=== PATIENT | male | born 1945 | race Caucasian/White ===

== ENCOUNTER 2016-07-21 08:07 | Inpatient (IN) | payer OTHER ==
[2016-06-08 09:41] VITALS: BMI 29.0
--- NOTE | 2016-06-08 10:17 | PAT Medication Instructions ---
Service Date Jun 08, 2016. Current Home Medication List Ascorbic Acid (Vitamin C), 500 MG PO QAM Aspirin (Aspirin Ec), 81 MG PO HS Famotidine (Acid Controller), 1 TAB PO QAM Fish Oil ([place]-3), 1 CAP PO QAM Gabapentin (Neurontin), 300 MG PO BID Glucosamine Sulfate (Glucosamine), 1,000 MG PO BID Ramipril (Ramipril), 1 CAP PO QAM Simvastatin (Zocor), 40 MG PO QPM [Coreg], 1.5625 MG PO BID Medication Instructions For Your Scheduled Surgery - Hold the following medications 2 weeks prior to surgery: Glucosamine Sulfate (Glucosamine), 1,000 MG PO BID Fish Oil ([place]-3), 1 CAP PO QAM - Hold the following medications the morning of surgery: Ramipril (Ramipril), 1 CAP PO QAM Famotidine (Acid Controller), 1 TAB PO QAM Ascorbic Acid (Vitamin C), 500 MG PO QAM - Take the following medications the morning of surgery with a sip of water: [Coreg], 1.5625 MG PO BID Gabapentin (Neurontin), 300 MG PO BID - Take the following medications as scheduled the night before surgery: [Coreg], 1.5625 MG PO BID Simvastatin (Zocor), 40 MG PO QPM Gabapentin (Neurontin), 300 MG PO BID Aspirin (Aspirin Ec), 81 MG PO HS If you have any questions please call us at [phone] (Jennifer Hoff PA-C) or [phone] or [phone]
[2016-06-08 10:53] LABS: BASO % 0.3 %; BASO ABS # 0.02 K/uL (0-0.2); COMPLETE YES; HEMATOCRIT 42.4 % (42-52); IG% 0.3 %; LYMPH % 22.9 %; MEAN CELL VOLUME 95.1 fL (80-100); MEAN CORPUSCULAR HEMOGLOBIN 32.7 pg (25-34); MEAN CORPUSCULAR HGB CONC 34.4 g/dl (32-36); MEAN PLATELET VOLUME 10.4 fL (7.4-10.4); MONO % 11.9 %; NEUT % 59.6 %; PLATELET COUNT 296 K/uL (130-400); RED BLOOD COUNT 4.46 M/uL (4.7-6.1); WHITE BLOOD COUNT 6.56 K/uL (4.8-10.8)
[2016-06-08 10:59] LABS: URINE APPEARANCE CLEAR (CLEAR); URINE BILIRUBIN NEG (NEG); URINE COLOR YELLOW; URINE NITRITE NEG (NEG); URINE SPECIFIC GRAVITY 1.007 (1.000-1.030); UROBILINOGEN NEG (NEG)
--- NOTE | 2016-06-08 10:59 | DIAGNOSTIC IMAGING REPORT ---
CHEST PREADMISSION(PA/LAT) CLINICAL HISTORY: PAT preoperative evaluation COMPARISON STUDY: No previous studies for comparison. FINDINGS: The bones soft tissues and hemidiaphragms are normal. The cardiomediastinal silhouette is normal. The lungs are clear. The pulmonary vasculature is normal. IMPRESSION: Negative chest. Electronically signed by: Agustin Ocasio M.D. 06/08/2016 10:58 AM Dictated Date/Time: 06/08/2016 10:57 AM
[2016-06-08 11:00] LABS: MANUAL MICROSCOPIC REQUIRED? NO; REVIEW REQ? NO
[2016-06-08 11:22] LABS: BUN/CREATININE RATIO 15.4 (10-20); CALCIUM 9.5 mg/dl (8.5-10.1); CREATININE 0.9 mg/dl (0.60-1.40); POTASSIUM 4.3 mmol/L (3.5-5.1)
--- NOTE | 2016-07-20 08:59 | HISTORY & PHYSICAL EXAMINATION ---
DATE OF ADMISSION: 07/21/2016 HISTORY OF PRESENT ILLNESS: Mr. Glass presents to our office with back and bilateral leg pain. This is exacerbated with activity. He has had an EMG on 05/27/[address] Hankins, which shows bilateral acute lumbosacral radiculopathy, is likely S1. 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 He has also had 2 prior lumbar injections with modest relief. Denies bowel or bladder dysfunction. PAST MEDICAL HISTORY: Significant for Lyme disease, hypertension, coronary artery disease, prostate cancer, anxiety/depression and GERD. PAST SURGICAL HISTORY: Significant for prostate, cardiac stents and vasectomy. ALLERGIES: None listed. MEDICATIONS: Include 81 mg of aspirin a day, unknown med twice a day, cimetidine 10 mg a day, fish oil 1000 mg a day, gabapentin 300 mg t.i.d., glucosamine 750 mg a day, ramipril 5 mg a day, simvastatin 40 mg a day, vitamin C 500 mg daily. SOCIAL HISTORY: He quit smoking in 1973. Alcohol use is 36 drinks of beer per week. Drug use none listed. He is . REVIEW OF SYSTEMS: Significant for back and bilateral leg pain. FAMILY HISTORY: Noncontributory. PHYSICAL EXAMINATION: HEENT: Speech appropriate. CARDIOPULMONARY: No gross abnormalities. ABDOMEN: Soft, nontender. GENITOURINARY: Deferred. NEUROLOGIC: Cranial nerves II-XII grossly intact. MUSCULOSKELETAL: The patient has 4/5 right dorsiflexion and extension and 5/5 on the left. He ambulates with a steady narrow-based gait. ASSESSMENT: Lumbar spinal stenosis. PLAN: At this point in time, he has trialed and failed conservative therapy. We have reviewed surgical intervention. Surgery would require lumbar decompression and instrumented fusion L4-L5 and L5-S1. Risks, benefits, pros, cons, and alternatives were outlined in detail. The patient would like to proceed with above-mentioned surgical planning. [facility] CENTER[facility]na
[2016-07-21] VITALS (7 sets, daily range): BP systolic 129–165; BP diastolic 80–87; PULSE 79–117; TEMP 36.4–36.9; O2SAT 95–98; Ht 170.2 cm; Wt 85.6 kg
[~2016-07-21] VITALS: Ht 170.2 cm; Wt 85.6 kg
--- NOTE | 2016-07-21 07:13 | History & Physical Bridge Note ---
H&P Re-Evaluation Bridge Note: I have examined the patient, reviewed the History & Physical and in the interval since the performance of the History & Physical I have noted the following changes of clinical significance: No changes noted
[~2016-07-21 08:07] MED LIST: ASCO1CAP3 PO; ASPI81TA28 PO; CEFAZOLIN 2000 MG/60 ML D5W IV SCH; COREG PO; FAMO10TA PO; GABA-113 PO; GLUC10007 PO; LACTATED RINGER'S 1000ML 1,000 ML IV SCH; OMEG10007 PO; RAMI5CAP PO; SIMV40TA2 PO
[2016-07-21] MEDS ORDERED: FENTANYL CITRATE INJ 50 MCG/1 ML 2 ML VIAL ONE ×3 (08:37→10:48)
[2016-07-21] MEDS ORDERED: HYDROmorphone INJ 2 MG/ML SYR/VIAL IV PRN (09:00)
[2016-07-21] MEDS ORDERED: ONDANSETRON INJ 2 MG/ML 2 ML VIAL IV PRN ×2 (09:00→11:30)
[2016-07-21] MEDS ORDERED: LABETALOL HCL IV 5 MG/ML 20ML IV PRN (09:00)
[2016-07-21] MEDS ORDERED: ATROPINE SULFATE 0.1 MG/ML 5ML SYR IV PRN (09:00)
[2016-07-21] MEDS ORDERED: SODIUM CHLORIDE 0.9% PF 50 ML VIAL ONE (09:12)
[2016-07-21] MEDS ORDERED: BACITRACIN 50000 UNIT VIAL ONE (09:12)
[2016-07-21] MEDS ORDERED: BUPIVACAINE/EPINEPHRINE 0.5% MPF 1:200,000 30 ML VIAL ONE (09:12)
[2016-07-21] MEDS ORDERED: HYDROmorphone INJ 2 MG/ML SYR/VIAL ONE ×2 (09:52→11:38)
[2016-07-21] MEDS: FLOSEAL HEMOSTATIC MATRIX 10ML TOP ONE ×3 (10:45→11:21)
[2016-07-21] MEDS ORDERED: SODIUM CHLORIDE 0.9% 1000ML 1,000 ML IV SCH (11:23)
--- NOTE | 2016-07-21 11:23 | [facility] Post Operative Brief Note ---
Immediate Operative Summary Operative Date Jul 21, 2016. Pre-Operative Diagnosis Spinal Stenosis Post-Operative Diagnosis same as pre-operative Procedure(s) Performed L4-L5, L5-S1 Lumbar Laminectomy, Decompression; L4-L5, L5-S1 Posterolateral Fusion, Interbody Cage L5-S1 with use of Lynn and Yuan Surgeon Dr. Juan J Case Racetrack Steward Surgeon(s) Eloisa Bazan PA-C Estimated Blood Loss 200ML Findings stenosis/spondy Specimens none
[2016-07-21] MEDS ORDERED: FAMOTIDINE 20 MG TAB PO PRN (11:30)
[2016-07-21] MEDS ORDERED: LORAZEPAM INJ 0.5 MG in SYRINGE 0.75 ML IV PRN (11:30)
[2016-07-21] MEDS ORDERED: MAGNESIUM HYDROXIDE SUSP 30 ML UDC PO PRN (11:30)
[2016-07-21] MEDS ORDERED: ACETAMINOPHEN 500 MG TAB PO PRN (11:30)
[2016-07-21] MEDS ORDERED: ACETAMINOPHEN IV 100 ML IV PRN (11:30)
[2016-07-21] MEDS ORDERED: BISACODYL 10 MG SUPP PR PRN (11:30)
[2016-07-21] MEDS ORDERED: ALUMINUM/MAGNESIUM SUSP 30 ML UDC PO PRN (11:30)
[2016-07-21] MEDS ORDERED: NALOXONE HCL 0.4 MG/1 ML VIAL/CARP IV PRN ×2 (11:30)
[2016-07-21] MEDS ORDERED: METOCLOPRAMIDE HCL INJ 5 MG/ML 2 ML VIAL IV PRN (11:30)
[2016-07-21] MEDS ORDERED: LORAZEPAM 0.5 MG TAB PO PRN (11:30)
[2016-07-21] MEDS ORDERED: DO NOT ADMINISTER FLU VACCINE PRN ×3 (11:30)
[2016-07-21] MEDS ORDERED: hydrOXYzine HCL 25 MG TAB PO PRN (11:30)
[2016-07-21] MEDS ORDERED: PROMETHAZINE HCL INJ 12.5 MG in SODIUM CHLORIDE 0.9% 50ML 50 ML IV PRN (11:30)
[2016-07-21] MEDS ORDERED: DO NOT ADMINISTER PNEUMOCOCCAL VACCINE PRN ×2 (11:30)
[2016-07-21] MEDS ORDERED: SOD PHOSPHATE/SOD BIPHOSPHATE ENEMA 132 ML BTL PR PRN (11:30)
[2016-07-21] MEDS ORDERED: LIDOCAINE HCL 2% 2 ML VIAL (20MG/ML) ONE (11:38)
[2016-07-21] MEDS ORDERED: PHENYLEPHRINE 100MCG/ML 5ML SYR ONE (11:38)
[2016-07-21] MEDS ORDERED: DEXAMETHASONE SOD INJ 4 MG/ML VIAL ONE (11:38)
[2016-07-21] MEDS ORDERED: PROPOFOL IV EMULSION 10 MG/ML 20 ML VIAL IV ONE (11:38)
[2016-07-21] MEDS ORDERED: ROCURONIUM BROMIDE 10 MG/ML 5 ML VIAL ONE (11:38)
[2016-07-21] MEDS ORDERED: EpHEDrine SULFATE 50MG/5ML SYR ONE (11:38)
[2016-07-21] MEDS ORDERED: NEOSTIGMINE METHYLSULFATE 1 MG/ML 10ML VIAL ONE (11:39)
[2016-07-21] MEDS ORDERED: KETOROLAC TROMETHAMINE 30 MG/ML VIAL ONE (11:39)
[2016-07-21] MEDS ORDERED: ONDANSETRON INJ 2 MG/ML 2 ML VIAL ONE (11:39)
[2016-07-21] MEDS ORDERED: GLYCOPYRROLATE INJ 0.2 MG/ML VIAL ONE (11:39)
[2016-07-21] MEDS ORDERED: HYDROmorphone HCL 0.5MG/ML 50 ML CASSETTE ONE (11:53)
--- NOTE | 2016-07-21 12:11 | DIAGNOSTIC IMAGING REPORT ---
INTRAOPERATIVE RADIOGRAPHS CLINICAL HISTORY: L4-S1 spinal fusion. Fluoroscopy time: 20 seconds. FINDINGS: 2 spot fluoroscopic views of the lower lumbar spine are presented. There is evidence of discectomy at L5-S1 with laminectomy and posterior fusion from L4 -S1. Interpedicular screws are present at all levels. The orthopedic hardware appears intact. IMPRESSION: Intraoperative images from L4 -S1 spinal fusion as above. Electronically signed by: Ki Javed M.D. 07/21/2016 12:10 PM Dictated Date/Time: 07/21/2016 12:09 PM
--- NOTE | 2016-07-21 12:35 | Anesthesiology Progress Note ---
Anesthesia Post Op Note Date & Time Jul 21, 2016 at 12:36 Vital Signs Pain Intensity: 0 Vital Signs Past 12 Hours Date Time Temp Pulse Resp B/P Pulse Ox O2 Delivery O2 Flow Rate FiO2 07/21/16 12:20 66 16 148/74 100 Nasal Cannula 4 07/21/16 12:10 79 16 157/78 100 Nasal Cannula 4 07/21/16 12:00 89 16 142/75 100 Mask 9 07/21/16 11:53 83 16 147/79 100 Mask 9 07/21/16 11:43 36.4 83 14 142/72 98 Mask 9 07/21/16 08:57 36.4 79 18 164/87 97 Room Air Notes Mental Status: alert / awake / arousable, participated in evaluation Pt Amnestic to Procedure: Yes Nausea / Vomiting: adequately controlled Pain: adequately controlled Airway Patency, RR, SpO2: stable & adequate BP & HR: stable & adequate Hydration State: stable & adequate Anesthetic Complications: no major complications apparent
--- NOTE | 2016-07-21 12:38 | OPERATIVE REPORT ---
DATE OF OPERATION: 07/21/2016 PREOPERATIVE DIAGNOSES: Spinal stenosis and spondylolisthesis. POSTOPERATIVE DIAGNOSES: Same. PROCEDURES PERFORMED: 1. Lumbar decompression, medial facetectomy, and foraminotomy L3-L4, L4-L5, and L5-S1. 2. Posterior spinal fusion, L4-L5 and L5-S1. 3. Placement of posterior segmental instrumentation using Orthros rods and screws, L4-L5 and L5-S1. 4. Interbody fusion, L5-S1. 5. Placement of PEEK cage 12 x 26 mm at L5-S1. 6. Placement of locally harvested morselized autograft in the posterior gutters. 7. Placement of Infuse collagen sponge combined with Mastergraft in the posterior gutters and Lynn bone grafting in the interbody space. SURGEON: Dr. Juan J Case. BARREL POLISHER INSIDE: Eloisa Collins PA-C Due to the complex nature of the procedure, the entire surgery was performed with the assistant teacher of MELISSA Soto. The team assistant, under direct supervision, was involved in the actual performance of all aspects of the surgical procedure including hemostasis, tissue retraction and incision, instrument management, patient positioning, and wound closure. ANESTHESIA: General. DISPOSITION: The patient awakened and taken to PACU in stable condition. HISTORY OF PATIENT'S PROBLEMS: A 71-year-old male who presents with above-mentioned diagnoses. After failing an extensive course of nonoperative care, he elected to undergo the above-mentioned procedures. Risks, benefits, pros, cons, and alternatives were outlined in detail preoperatively. DESCRIPTION OF PROCEDURE: The patient was met with preoperatively, case discussed and all questions were addressed. At that point, the patient was taken back to operative suite and after undergoing successful general intubation by the department of anesthesia, he was placed in prone position on Ish table atop a Rizwan frame. All bony prominences were well padded and the eyes were inspected to ensure there was no external pressure placed upon them. At this point, lumbar spine was prepped and draped in normal sterile fashion. Sharp dissection with the assistance of Bovie cautery performed down to and exposing the lamina and transverse processes of L4, L5 and sacral ala bilaterally. From a caudal to cephalad fashion, complete laminectomy of L5, L4, partial laminectomy of L3 was performed addressing severe lateral recess stenosis. After this was complete, pedicle screws then placed in L4, L5 and S1 levels bilaterally with assistance of fluoroscopy and appropriate size clive provisionally placed. Through a transforaminal approach on the right, a complete diskectomy of L5-S1 was performed, endplates curetted to subcortical bleeding bone and a 12 x 26 mm PEEK cage filled with Lynn bone grafting tapped into position. The rods were then compressed, locked into final position bilaterally and transverse processes of L4, L5 and sacral ala burred to subcortical bone. Infuse collagen sponge combined with Mastergraft and locally harvested morcellized autograft was placed in the posterior gutters. A 7 flat CHUCK inserted. Incision was closed with 1-0 Vicryl in the fascia, 2-0 Vicryl subcutaneously, and 4-0 Monocryl for final skin closure. Steri-Strips and sterile dressing placed. The patient was awakened and taken to PACU in stable condition. I attest to the content of the Intraoperative Record and any orders documented therein. Any exceptio ns are noted below.
[2016-07-21] MEDS: HYDROmorphone HCL 0.5MG/ML 50 ML CASSETTE IV PRN ×2 (16:33→23:17)
[2016-07-21] MEDS: CEFAZOLIN IV 2,000 MG in DEXTROSE 5% 50ML 50 ML IV SCH (17:37)
[2016-07-21] MEDS: LACTATED RINGER'S 1000ML 1,000 ML IV SCH ×2 (17:38→18:15)
[2016-07-21] MEDS ORDERED: COUGH DROP (SUGAR FREE) LOZ 24 LOZ/1 BOX PO PRN (19:45)
[2016-07-21] MEDS: ASPIRIN 81 MG ECTAB PO SCH (21:35)
[2016-07-21] MEDS: DEXAMETHASONE INJ 6 MG in SYRINGE 0 ML IV SCH (21:35)
[2016-07-21] MEDS: GABAPENTIN 300 MG CAP PO SCH (21:35)
[2016-07-21] MEDS: SIMVASTATIN 40 MG TAB PO SCH (21:36)
[2016-07-21] MEDS: DOCUSATE SODIUM/SENNA 50/8.6MG TAB PO SCH (21:36)
[2016-07-21] MEDS: CARVEDILOL 3.125 MG TAB PO SCH (21:37)
[2016-07-22] VITALS (7 sets, daily range): BP systolic 143–168; BP diastolic 74–83; PULSE 81–92; TEMP 36.6–37; O2SAT 95–99
[2016-07-22] MEDS: LACTATED RINGER'S 1000ML 1,000 ML IV SCH (00:17)
[2016-07-22] MEDS: CEFAZOLIN IV 2,000 MG in DEXTROSE 5% 50ML 50 ML IV SCH (02:06)
[2016-07-22] MEDS: DEXAMETHASONE INJ 6 MG in SYRINGE 0 ML IV SCH ×2 (04:09→11:32)
[2016-07-22] MEDS ORDERED: DC PCA SCH (06:00)
[2016-07-22] MEDS ORDERED: OXYCODONE HCL IR 5 MG TAB (IMMEDIATE RELEASE) PO PRN (06:01)
[2016-07-22] MEDS ORDERED: HYDROmorphone INJ 1 MG/ML SYR IV PRN (06:01)
[2016-07-22] MEDS ORDERED: NURSING VERBAL MED ORDER ONE (06:15)
[2016-07-22 06:50] LABS: COMPLETE YES; HEMATOCRIT 33.9 % (42-52); IG% 0.3 %; LYMPH ABS # 0.58 K/uL (1.2-3.4); MEAN CELL VOLUME 91.6 fL (80-100); MEAN CORPUSCULAR HEMOGLOBIN 31.1 pg (25-34); MEAN CORPUSCULAR HGB CONC 33.9 g/dl (32-36); MEAN PLATELET VOLUME 9.9 fL (7.4-10.4); MONO % 4.2 %; NEUT % 90.5 %; PLATELET COUNT 259 K/uL (130-400); WHITE BLOOD COUNT 11.52 K/uL (4.8-10.8)
[2016-07-22 07:13] LABS: BUN/CREATININE RATIO 17.4 (10-20); CALCIUM 8.6 mg/dl (8.5-10.1); CREATININE 0.95 mg/dl (0.60-1.40); POTASSIUM 4.4 mmol/L (3.5-5.1)
--- NOTE | 2016-07-22 08:19 | Anesthesiology Progress Note ---
Anesthesia Post Op Note Date & Time Jul 22, 2016 at 08:18 Vital Signs Pain Intensity: 3.0 Vital Signs Past 12 Hours Date Time Temp Pulse Resp B/P Pulse Ox O2 Delivery O2 Flow Rate FiO2 07/22/16 08:13 Room Air 07/22/16 07:38 36.6 81 16 143/79 95 Room Air 07/22/16 04:14 95 Room Air 07/22/16 03:15 36.6 88 16 154/78 99 Nasal Cannula 3.5 07/22/16 00:05 Nasal Cannula 2.0 07/21/16 23:48 36.7 88 16 146/80 98 Nasal Cannula 3.0 Notes Mental Status: alert / awake / arousable, participated in evaluation Pt Amnestic to Procedure: Yes Nausea / Vomiting: adequately controlled Pain: adequately controlled Airway Patency, RR, SpO2: stable & adequate BP & HR: stable & adequate Hydration State: stable & adequate Anesthetic Complications: no major complications apparent
[2016-07-22] MEDS: GABAPENTIN 300 MG CAP PO SCH ×2 (08:56→20:41)
[2016-07-22] MEDS: CARVEDILOL 3.125 MG TAB PO SCH ×2 (08:57→20:42)
[2016-07-22] MEDS: FAMOTIDINE 20 MG TAB PO SCH (09:25)
--- NOTE | 2016-07-22 09:48 | PROGRESS NOTE ---
DATE: 07/22/2016 Postop day 1. Back pain is controlled. Leg pain improved. Vital signs stable. T-max 36.6. CHUCK drained 115 mL over the last shift. Hematocrit this a.m. is 33.9. PHYSICAL EXAMINATION: The patient is sitting in bed, has good strength to testing, has been up and ambulatory. ASSESSMENT: Status post lumbar decompression and fusion. PLAN: At this time, initiate physical therapy, advance her bowel regimen and hopefully anticipate home this weekend.
[2016-07-22] MEDS: ASPIRIN 81 MG ECTAB PO SCH (20:41)
[2016-07-22] MEDS: DOCUSATE SODIUM/SENNA 50/8.6MG TAB PO SCH (20:41)
[2016-07-22] MEDS: SIMVASTATIN 40 MG TAB PO SCH (20:41)
[2016-07-23] VITALS (7 sets, daily range): BP systolic 154–171; BP diastolic 80–90; PULSE 69–79; TEMP 36.4–36.7; O2SAT 96–100
[2016-07-23] MEDS ORDERED: POLYETHYLENE (MIRALAX) 17 GM PACK PO SCH (06:00)
[2016-07-23] MEDS ORDERED: NURSING DECISION MEDICATION ORDER SCH (06:30)
[2016-07-23] MEDS: CARVEDILOL 3.125 MG TAB PO SCH (07:23)
[2016-07-23] MEDS: GABAPENTIN 300 MG CAP PO SCH (07:23)
[2016-07-23] MEDS: FAMOTIDINE 20 MG TAB PO SCH (07:23)
[2016-07-23] MEDS ORDERED: RXC5 PO (09:54)
--- NOTE | 2016-07-23 09:55 | Discharge Instructions ---
Discharge Instructions Date of Service Jul 23, 2016. Admission Reason for Admission: Spinal Stenosis Discharge Discharge Diagnosis / Problem: stenosis Discharge Goals Goal(s): Improve function Activity Recommendations Activity Limitations: per Instructions/Follow-up section . Instructions / Follow-Up Instructions / Follow-Up ACTIVITY RECOMMENDATIONS: SELF CARE INSTRUCTIONS AFTER THORACIC/LUMBAR FUSIONS 1. You may walk to your tolerance. It is good exercise for your legs and back. Expect some back and intermittent leg aches and pains. 2. You may perform "counter-top" level activities (make a sandwich, gabriele with a project, etc.). 3. No bending or lifting of more than 10 pounds or back twisting of any nature (roll like a log when turning in bed). 4. You may ride in a car for 20-30 minutes at a time. No driving until after your first visit with your doctor. 5. Frequent changes of position and restricting sitting to 30 minutes at a time will help limit the amount of back spasms and stiffness you may experience. 6. You may discontinue the use of ambulatory aids (cane, crutches, etc.) once your strength and confidence allow. 7. You may ballast cleaning machine operator the shower and let water strike your incision when you arrive home at least once daily. Do not take a tub bath, sit in a hot tub or go into a swimming pool until after your first recheck in the office. SPECIAL CARE INSTRUCTIONS: VERY IMPORTANT TO READ AND REVIEW A. Your surgical incision has been closed with a cosmetic suture under the skin that will dissolve in about 6 weeks. In 14 days, you can use a pair of clean scissors and cut the suture that is left outside of the skin at the ends of your incision. 1. The small skin tapes can be removed 7 days after surgery if they have not fallen off by that point. 2. You may keep the wound open to air as much as possible to promote healing after post-op day number 5 unless told otherwise by your doctor. 3. If you think the wound looks like it is becoming infected (redness or worsening drainage) and/or you are experiencing fever, chill or worsening back pain and muscle spasms, contact the office so that we may evaluate you as soon as possible. B. Complications are uncommon, but please contact us if you have any signs or symptoms of: 1. wound infection (fever higher than 102.5 degrees F, redness, separation of wound, drainage, or increasing pain from the incision) 2. blood clots in legs (pain, swelling, redness and warmth in legs) 3. urinary tract infection (fever higher than 102.5 degrees F, burning upon urination or increased frequency of urination) 4. nerve problems (inability to walk on your toes or heels, numbness, loss of bowel or bladder control) 5. any other symptoms that concern you C. Please call the office at if you have any concerns or questions about your operation or recovery. D. No smoking! Smoking drastically decreases the chance of a solid fusion. E. Do not take any anti-inflammatory medications (Indocin, Advil, Motrin, Aspirin, Naprosyn, etc.) as these may inhibit the chance of a solid fusion. Tylenol is okay to take for pain. MANAGING PAIN AFTER SPINAL SURGERY 1. Narcotic medication is intended for short-term use and will be provided for surgical pain. Surgical pain usually lasts for a period of 4-6 weeks. Narcotic medication includes Percocet, Vicodin, Darvocet, Tylenol #3 or Lortab. 2. Longer-term pain is more appropriately treated with non-narcotic medication such as Tylenol ES. 3. Muscle spasm is not appropriately treated with narcotics. Muscle relaxers such as Soma, Flexeril or Skelaxin can be used along with Tylenol ES. 4. Remember that we all live with some "aches and pains". This is not unusual or uncommon after an injury or as we get older. a. Back pain is expected and may include muscle spasms for 4 to 6 weeks after surgery. The pain should gradually improve. If the pain worsens for no apparent reason, please contact the office. b. Intermittent leg pain may also be experienced and should not be concerned about unless it worsens for no apparent reason. If so, please contact the office. 5. We will provide appropriate medication within the normal guidelines of their prescribed use. We will also be very cautious and aware of potential abuse and extended duration of patients' medication needs. a. Pain medications are for your comfort and to assist with sleep and rest so that the tissue can heal. They are not provided in order to return to normal activity and should not be used through the day. To do so or worsening pain at night can result from ongoing tissue damage and development of tolerance to the prescribed medicine. 6. Please allow 2-3 days to process refills. Prescriptions will not be mailed but must be picked up at the office. FOLLOW UP VISIT: Keep your scheduled follow-up appointment. Any questions, please call the office at . Current Hospital Diet Patient's current hospital diet: Regular Diet Discharge Diet Recommended Diet: Regular Diet Procedures Procedures Performed: L4-L5, L5-S1 Lumbar Laminectomy, Decompression; L4-L5, L5-S1 Posterolateral Fusion, Interbody Cage L5-S1 with use of Lynn and Infuse Pending Studies Studies pending at discharge: no Medical Emergencies . Who to Call and When: Medical Emergencies: If at any time you feel your situation is an emergency, please call 911 immediately. . Non-Emergent Contact Non-Emergency issues call your: Primary Care Provider . "Provider Documentation" section prepared by Juan J Case. VTE Core Measure Inpt VTE Proph given/why not?: Hilario Goodman, [facility]
--- NOTE | 2016-07-23 11:33 | DISCHARGE SUMMARY ---
DATE OF DISCHARGE: 07/23/2016. PRINCIPAL DIAGNOSIS: Spinal stenosis. HOSPITAL COURSE FOLLOWS: On 07/21/2016 the patient underwent multilevel lumbar decompression and fusion, tolerated this well and taken to the orthopedic floor postoperatively. Postop day #1, he was up and ambulatory, progressed nicely to postop day #2. Back pain well controlled. Leg pain markedly improved. Bowels were working well. Subsequently discharged home with home health. Discharge orders and instructions can be found on the chart for further review.
== END 2016-07-23 13:40 | disposition home health service (06) | DRG 460 ==
LOC: ENRESERVTM → ENRESERVDT → C.ACU 08:07 → C.3E 09:00
PROVIDERS: ADMIT Orthopaedic Surgery Orthopaedic Surgery of the Spine; ATTEND Orthopaedic Surgery Orthopaedic Surgery of the Spine
PROC: 0SG30AJ Fusion of Lumbosacral Joint with Interbody Fusion Device, Posterior Approach, Anterior Column, Open Approach (ICD-10-PCS; principal; 2016-07-21 09:50)
PROC: 0SG00J1 Fusion of Lumbar Vertebral Joint with Synthetic Substitute, Posterior Approach, Posterior Column, Open Approach (ICD-10-PCS; principal; 2016-07-21 09:50)
PROC: 0SG30J1 Fusion of Lumbosacral Joint with Synthetic Substitute, Posterior Approach, Posterior Column, Open Approach (ICD-10-PCS; principal; 2016-07-21 09:50)
DX: M48.06 Spinal stenosis, lumbar region (principal); M43.16 Spondylolisthesis, lumbar region; M54.17 Radiculopathy, lumbosacral region; G62.9 Polyneuropathy, unspecified; I25.10 Atherosclerotic heart disease of native coronary artery without angina pectoris; I10 Essential (primary) hypertension; K21.9 Gastro-esophageal reflux disease without esophagitis; Z98.61 Coronary angioplasty status; Z86.19 Personal history of other infectious and parasitic diseases; Z85.46 Personal history of malignant neoplasm of prostate; Z87.891 Personal history of nicotine dependence; Z79.82 Long term (current) use of aspirin; Z79.899 Other long term (current) drug therapy